=== PATIENT | male | born 1930 | race Caucasian/White ===

== ENCOUNTER 2016-12-07 13:03 | Inpatient (IN) | payer OTHER ==
[~2016-12-07] VITALS: Ht 182.9 cm; Wt 77.0 kg
[2016-12-07 13:44] LABS: EOSINOPHIL (%) 3.4 % (0-5); EOSINOPHIL COUNT 0.3 K/uL (0-0.3); HEMATOCRIT 28.9 % (38.0-50.0); IMMATURE GRANULOCYTE (%) 0.6 % (0.0-0.7); IMMATURE GRANULOCYTE COUNT 0.1 K/uL; INSTRUMENT ABS NEUTROPHIL CT 6.2 K/uL; LYMPHOCYTE COUNT 1.4 K/uL (1.0-2.8); MCH 31.5 PG (29.0-34.0); MCHC 32.5 G/DL (30.0-36.0); MEAN PLAT.VOLUME 10.2 uM^3 (9.0-12.4); MONOCYTE (%) 7.5 % (3-12); MONOCYTE COUNT 0.6 K/uL (0-0.8); NEUTROPHIL (%) 72.3 % (45-76); NEUTROPHIL COUNT 6.2 K/uL (1.8-6.4); PLATELET COUNT 247 K/uL (156-360); RBC DIS.WIDTH-CV 15.5 % (11.8-14.6); RBC DIS.WIDTH-SD 55.2 % (39-53); RED BLOOD COUNT 2.98 M/uL (4.00-5.50); WHITE BLOOD COUNT 8.6 K/uL (4.1-10.2)
[2016-12-07 13:55] LABS: CHLORIDE 108 mEq/L (99-109); POTASSIUM 4.8 mEq/L (3.7-5.4); SODIUM 140 mEq/L (136-147)
[2016-12-07 13:56] LABS: MAGNESIUM 2.2 mg/dL (1.3-2.7)
[2016-12-07 13:58] LABS: GLUCOSE 110 mg/dL (70-99)
[2016-12-07 13:59] LABS: ANION GAP 10 MEQ/L (2-14)
[2016-12-07 14:00] LABS: TOTAL BILIRUBIN 0.4 mg/dL (0.0-1.0)
[2016-12-07 14:01] LABS: ALKALINE PHOSPHATASE 56 IU/L (3-129)
[2016-12-07 14:02] LABS: GFR ESTIMATE (CALCULATED) 47 mL/min/; UREA NITROGEN (BUN) 42 mg/dL (9-23)
[2016-12-07 14:05] LABS: TROP-I INTERPRETATION NEGATIVE; TROPONIN-I 0.01 ng/mL (0.0-0.30)
[2016-12-07] MEDS ORDERED: DEMADEX10 MG PO (16:52)
[2016-12-07] MEDS ORDERED: LISINOPRIL10 MG PO (16:52)
[2016-12-07] MEDS ORDERED: ALLOPURINOL100 MG PO (16:52)
[2016-12-07] MEDS ORDERED: CARVEDILOL6.25 MG PO (16:52)
[2016-12-07] MEDS ORDERED: SYNTHROID75 MCG PO (16:52)
[2016-12-07] MEDS ORDERED: CO Q-1030 MG PO (16:53)
[2016-12-07] MEDS ORDERED: OMEGA-31000 M1 PO (16:54)
[2016-12-07] MEDS ORDERED: UBIQUINOL100 MG PO (16:54)
[2016-12-07] MEDS ORDERED: ONE-A-DAY ESSE1 EAC1 PO (16:54)
[2016-12-07 17:57] VITALS: BP 174/79
[2016-12-07 19:40] VITALS: BP 138/62
[2016-12-07 20:24] LABS: ADD MIUA? YES; BILIRUBIN NEGATIVE; BLOOD SMALL; COLOR YELLOW ((YELLOW)); GLUCOSE (STRIP) NEGATIVE; KETONES NEGATIVE; LEUKOCYTES NEGATIVE; NITRITE NEGATIVE; PROTEIN (STRIP) NEGATIVE; UROBILINOGEN 0.2 MG/DL (0.2-1.0)
[2016-12-07 20:32] LABS: BACTERIA NONE SEEN /HPF; EPITHELIAL CELLS NONE SEEN /HPF; MUCUS NONE SEEN /LPF; RED BLOOD CELLS 0-5 /HPF (0-5); UCUL ADDED? NO; WHITE BLOOD CELLS 0-5 /HPF (0-5)
[2016-12-07 20:47] LABS: TROP-I INTERPRETATION NEGATIVE; TROPONIN-I 0.02 ng/mL (0.0-0.30)
[2016-12-07 21:00] VITALS: BP 129/61
[2016-12-07 23:35] VITALS: BP 103/66; BP 118/58
[2016-12-08 02:21] LABS: TROP-I INTERPRETATION NEGATIVE; TROPONIN-I 0.02 ng/mL (0.0-0.30)
[2016-12-08 02:59] VITALS: BP 101/53
[2016-12-08 05:36] LABS: HEMATOCRIT 23.8 % (38.0-50.0); MCH 31.7 PG (29.0-34.0); MCHC 32.4 G/DL (30.0-36.0); MCV 97.9 FL (86-99); MEAN PLAT.VOLUME 10.4 uM^3 (9.0-12.4); PLATELET COUNT 206 K/uL (156-360); RBC DIS.WIDTH-CV 15.6 % (11.8-14.6); RBC DIS.WIDTH-SD 55.6 % (39-53); RED BLOOD COUNT 2.43 M/uL (4.00-5.50); WHITE BLOOD COUNT 15.8 K/uL (4.1-10.2)
[2016-12-08 06:02] LABS: ANION GAP 6 MEQ/L (2-14); CHLORIDE 110 MEQ/L (99-109); GFR ESTIMATE (CALCULATED) 51 mL/min/; GLUCOSE 108 mg/dL (70-99); POTASSIUM 4.4 MEQ/L (3.7-5.4); SAMPLE HEMOLYSIS CHECK 0; SAMPLE ICTERIC CHECK 0; SAMPLE LIPEMIA CHECK 0; SODIUM 140 MEQ/L (136-147); UREA NITROGEN (BUN) 37 mg/dL (9-23)
[2016-12-08 08:23] VITALS: BP 118/54
[2016-12-08 09:02] LABS: INTERNAL CONTROL VALID? YES
[2016-12-08 12:18] VITALS: BP 90/48
[2016-12-08 16:08] VITALS: BP 111/59; BP 157/70
[2016-12-08 20:45] VITALS: BP 138/68
[2016-12-09 05:15] LABS: EOSINOPHIL (%) 3.5 % (0-5); EOSINOPHIL COUNT 0.4 K/uL (0-0.3); HEMATOCRIT 24.7 % (38.0-50.0); IMMATURE GRANULOCYTE (%) 0.5 % (0.0-0.7); IMMATURE GRANULOCYTE COUNT 0.1 K/uL; INSTRUMENT ABS NEUTROPHIL CT 8.5 K/uL; LYMPHOCYTE COUNT 2.2 K/uL (1.0-2.8); MCH 32.3 PG (29.0-34.0); MCHC 32.8 G/DL (30.0-36.0); MCV 98.4 FL (86-99); MEAN PLAT.VOLUME 10.4 uM^3 (9.0-12.4); MONOCYTE COUNT 0.7 K/uL (0-0.8); NEUTROPHIL (%) 71.2 % (45-76); NEUTROPHIL COUNT 8.5 K/uL (1.8-6.4); PLATELET COUNT 224 K/uL (156-360); RBC DIS.WIDTH-CV 15.8 % (11.8-14.6); RBC DIS.WIDTH-SD 56.1 % (39-53); RED BLOOD COUNT 2.51 M/uL (4.00-5.50); WHITE BLOOD COUNT 11.9 K/uL (4.1-10.2)
[2016-12-09 05:37] LABS: ANION GAP 7 MEQ/L (2-14); CHLORIDE 109 MEQ/L (99-109); GFR ESTIMATE (CALCULATED) 47 mL/min/; GLUCOSE 93 mg/dL (70-99); SAMPLE HEMOLYSIS CHECK 0; SAMPLE ICTERIC CHECK 0; SAMPLE LIPEMIA CHECK 0; SODIUM 141 MEQ/L (136-147); UREA NITROGEN (BUN) 35 mg/dL (9-23)
[2016-12-09 06:20] VITALS: BP 148/78
[2016-12-09 07:43] VITALS: BP 165/72
[2016-12-09 12:14] VITALS: BP 171/74
[2016-12-09 16:02] VITALS: BP 120/58
[2016-12-09 18:53] VITALS: BP 178/83
[2016-12-10 00:15] VITALS: BP 175/77
[2016-12-10 04:27] VITALS: BP 173/76
[2016-12-10 05:09] LABS: EOSINOPHIL COUNT 0.5 K/uL (0-0.3); HEMATOCRIT 25.3 % (38.0-50.0); IMMATURE GRANULOCYTE (%) 0.4 % (0.0-0.7); INSTRUMENT ABS NEUTROPHIL CT 6.7 K/uL; LYMPHOCYTE COUNT 2.1 K/uL (1.0-2.8); MCH 31.8 PG (29.0-34.0); MCHC 32.8 G/DL (30.0-36.0); MCV 96.9 FL (86-99); MEAN PLAT.VOLUME 10.4 uM^3 (9.0-12.4); MONOCYTE (%) 6.6 % (3-12); MONOCYTE COUNT 0.7 K/uL (0-0.8); NEUTROPHIL (%) 66.6 % (45-76); NEUTROPHIL COUNT 6.7 K/uL (1.8-6.4); PLATELET COUNT 242 K/uL (156-360); RBC DIS.WIDTH-CV 15.4 % (11.8-14.6); RBC DIS.WIDTH-SD 54.3 % (39-53); RED BLOOD COUNT 2.61 M/uL (4.00-5.50)
[2016-12-10 05:41] LABS: ANION GAP 6 MEQ/L (2-14); CHLORIDE 109 MEQ/L (99-109); GFR ESTIMATE (CALCULATED) 44 mL/min/; GLUCOSE 96 mg/dL (70-99); POTASSIUM 4.4 MEQ/L (3.7-5.4); SAMPLE HEMOLYSIS CHECK 0; SAMPLE ICTERIC CHECK 0; SAMPLE LIPEMIA CHECK 0; SODIUM 141 MEQ/L (136-147); UREA NITROGEN (BUN) 33 mg/dL (9-23)
[2016-12-10 07:18] VITALS: BP 166/72
[2016-12-10 11:15] VITALS: BP 166/67
[2016-12-10] MEDS ORDERED: TESSALON PERLE100 MG PO (13:55)
[2016-12-10] MEDS ORDERED: CEFDINIR300 MG PO (13:55)
[2016-12-10] MEDS ORDERED: ROBITUSSIN100 MG/5 M PO (13:55)
== END 2016-12-10 16:19 | disposition home or self-care (01) | DRG 871 ==
LOC: EME 13:03 → EDOF 16:06 → ENRESERV 16:09 → 5WEST 17:43 → 4EAST 22:28 → 5WEST 22:28 → ENRESERV 22:29 → 4EAST 23:34 → ENPENDDIS 12-10 → 4EAST 12-10 16:19
PROVIDERS: Emergency Medicine; Internal Medicine; Nurse Practitioner Adult Health; Physician Assistant Medical
DX: A41.9 Sepsis, unspecified organism (principal); J18.9 Pneumonia, unspecified organism; R55 Syncope and collapse; I12.9 Hypertensive chronic kidney disease with stage 1 through stage 4 chronic kidney disease, or unspecified chronic kidney disease; E87.2 Acidosis; E86.1 Hypovolemia; E03.9 Hypothyroidism, unspecified; H40.9 Unspecified glaucoma; M10.9 Gout, unspecified; N18.3 Chronic kidney disease, stage 3 (moderate); I25.10 Atherosclerotic heart disease of native coronary artery without angina pectoris; I42.0 Dilated cardiomyopathy; I44.7 Left bundle-branch block, unspecified; Z82.49 Family history of ischemic heart disease and other diseases of the circulatory system; Z87.891 Personal history of nicotine dependence; D64.9 Anemia, unspecified
CPT/HCPCS: 71010; 71250; 80048; 80053; 81003; 83605; 83735; 84484; 85025; 85027; 87040; 87449; 93005; 99281; 99285; C1753; J0456; J0696; J1644; J7030; J7040; J7050